=== PATIENT | female | born 1960 | race Caucasian/White ===

== ENCOUNTER → 2020-12-14 | Outpatient (CLI) | payer OTHER ==
[~2020-12-14] VITALS: Ht 167.6 cm; Wt 59.0 kg
[~2020-12-14] MED LIST: ATIVAN0.5 M1 PO; BUPROPION XL300 MG PO; CARAFATE1 GM PO; CARVEDILOL25 MG PO; EFFEXOR XR150 MG PO; OMEPRAZOLE 20 M20 M1 PO; SPIRONOLACTONE25 MG PO; XARELTO2.5 MG PO; ZESTRIL20 MG PO
== END ==
LOC: LAB
PROVIDERS: Student in an Organized Health Care Education/Training Program; ATTEND Specialist
DX: Z01.812 Encounter for preprocedural laboratory examination (principal); Z20.822 Contact with and (suspected) exposure to COVID-19

== ENCOUNTER → 2020-12-16 | Outpatient (CLI) | payer OTHER ==
[~2020-12-16] VITALS: Ht 167.6 cm; Wt 59.0 kg
--- NOTE | 2020-12-16 10:57 | P ---
[facility] [place] [address] PROCEDURE REPORT Name: FARHAN LUEVANO Room #: REG [facility] Caryl#: [id number] Admission: 12/16/20 Attend Phys: Alen Monroe Discharge: Date of : 56 Report #: [id number] THIS REPORT FOR: cc: Marija Saunders MD, Jennifer L MD McElhinney, Christian C. MD ~ DATE OF SERVICE: 12/16/2020 PROCEDURE PERFORMED: Upper endoscopy with biopsies and esophageal dilation. HISTORY OF PRESENT ILLNESS: The patient is a 60-year-old female with a history of intermittent dysphagia. No previous history of upper endoscopy. She had an ICD pacemaker placed in September with completion in October for history of bundle branch block. She has been on Xarelto, holding this for the last 3 days. She did have upper chest pain, was seen in the Emergency Room after her pacemaker placement, thought to be secondary to reflux, therefore, placed on Prilosec and Carafate approximately 2 weeks ago. She denies any significant history of heartburn. Plan is for upper endoscopy. DESCRIPTION OF PROCEDURE: The risks and benefits of the procedure were explained to the patient, those risks including but not limited to bleeding, perforation and the risk of sedation. She understood these risks and gave informed consent. Sedation was given using propofol per anesthesia. Next, using a standard Olympus upper endoscope, the scope was placed in the patient's mouth and advanced under direct vision through the esophagus, stomach and into the second portion of the duodenum. The larynx was normal in appearance. The upper and mid esophagus was normal in appearance. In the distal esophagus, possible short segment of Javed's was noted. Biopsies were obtained. No evidence of stricture or esophagitis. Overall, the gastric mucosa was normal. The pylorus was normal and patent. The duodenal bulb, first and second portion were all normal. The scope was then brought back up into the patient's stomach and a Savary guidewire was inserted through the scope, leaving the guidewire in place as the scope was then withdrawn. Next, a 48-[place] Savary dilation of the esophagus was then performed without difficulty. The wire and dilator removed. The scope was reintroduced into the patient's stomach. A small mucosal tear was noted in the proximal esophagus. No evidence of bleeding. The scope was then withdrawn and the procedure terminated. The patient tolerated the procedure well. IMPRESSION: 1. 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 2. Otherwise, normal upper endoscopy. RECOMMENDATIONS: 1. Await biopsy results. [address] [address] PROCEDURE REPORT Name: FARHAN LUEVANO Room #: REG [facility] Hutson#: [id number] Admission: 12/16/20 Attend Phys: Alen Monroe Discharge: Date of : 56 Report #: [id number] 2. We will continue daily Prilosec and discontinue Carafate at this time. 3. Observe the patient post-dilation. Thank you for allowing me to participate in her care. <ELECTRONICALLY SIGNED> By: Alen Sandra MD 12/16/20 1057 [id number] Alen Sandra MD /nt
--- NOTE | 2020-12-19 18:06 | PATH ---
[facility] [address] [place] [address] PATHOLOGY RPT PROCEDURE Name: YESSICA RICHARDS Ana Luisa Room #: REG [facility] Conor.#: [id number] Admission: 12/16/20 Date of : 56 Discharge: Report #: [id number] Path Case #: [id number] [facility] Accession Number: [id number] . 01 Material submitted: . esophagus - BIOPSY DISTAL ESOPHAGUS. Modifiers: distal . 01 Clinical history: . R/O GUERRERO'S DYSPHAGIA EGD DTS/EGD/DYSPHAGIA . 02 Diagnosis: Gastroesophageal mucosa, distal esophagus, rule out Guerrero's, endoscopic biopsy: - Moderate chronic gastritis associated with reactive changes. - No definite intestinal metaplasia/Guerrero's metaplasia present. (IUV:pit 12/19/2020) QTP 12/19/2020 1700 Local . 02 Electronically signed: . Jody Barker MD, Pathologist NPI- [id number] . 01 Gross description: . Received in formalin labeled "Yessica Richards, biopsy distal esophagus rule out Guerrero's" are multiple scales-brown soft tissue fragments measuring in aggregate 1.2 x 0.4 x 0.3 cm. The specimen is submitted entirely in A1. ([facility]; 12/17/2020) GZA/GZA 12/17/2020 1054 Local . 02 Pathologist provided ICD-10: K29.50 . 02 CPT . 406195 Specimen Comment: A courtesy copy of this report has been sent to [phone], [phone] Specimen Comment: [phone] Specimen Comment: Report sent to / Performed at: [address] [id number] MD Ras Masters MD Phone: [phone] Performed at: 02 [facility] [address] [place] [address] PATHOLOGY RPT PROCEDURE Name: YESSICA RICHARDS Room #: REG [facility].#: [id number] Admission: 12/16/20 Date of : 56 Discharge: Report #: [id number] Path Case #: [id number] [address] [place] [id number] MD Jody Barker MD Phone: [phone]
== END | disposition home or self-care (01) ==
LOC: GI 07:01
PROVIDERS: ATTEND Specialist
DX: R13.10 Dysphagia, unspecified (principal); K29.50 Unspecified chronic gastritis without bleeding; K21.9 Gastro-esophageal reflux disease without esophagitis; I10 Essential (primary) hypertension; F32.9 Major depressive disorder, single episode, unspecified; F41.9 Anxiety disorder, unspecified; Z98.890 Other specified postprocedural states; Z79.899 Other long term (current) drug therapy; Z79.01 Long term (current) use of anticoagulants; Z95.0 Presence of cardiac pacemaker
CPT/HCPCS: 62110; 62900